=== PATIENT | male | born 1960 | race Caucasian/White ===

== ENCOUNTER 2018-12-14 06:07 | Inpatient (IN) ==
--- NOTE | 2018-12-07 10:01 | EKG Report ---
Test Performed on : 12/07/2018 09:53:17 AM Test Reason : PAT Blood Pressure : / mmHG Vent. Rate : 062 BPM Atrial Rate : 062 BPM P-R Int : 124 ms QRS Dur : 092 ms QT Int : 374 ms P-R-T Axes : 035 032 052 degrees QTc Int : 379 ms Normal sinus rhythm. Normal ECG When compared with ECG of 28-JUL-2017 09:14, No significant change was found Confirmed by Jaun CALLOWAY, Price Heath ([id number]) on 12/08/2018 8:23:42 PM
[2018-12-07 10:08] LABS: URINE SOURCE CLEAN CATCH
[2018-12-07 10:35] LABS: BILIRUBIN URINE NEGATIVE (NEGATIVE); BLOOD URINE NEGATIVE (NEGATIVE); COLOR YELLOW; GLUCOSE URINE NEGATIVE (NEGATIVE); KETONE URINE NEGATIVE (NEGATIVE); LEUKOCYTES URINE NEGATIVE (NEGATIVE); NITRITE URINE NEGATIVE (NEGATIVE); PH URINE 7.5; PROTEIN URINE NEGATIVE (NEGATIVE); SP GRAVITY URINE 1.015; TURBIDITY URINE CLEAR (CLEAR); UROBILINOGEN URINE NORMAL (NORMAL)
[2018-12-07 10:38] LABS: BASO# 0.05 X1000 (0.0-0.2); BASO% 0.8 % (0.0-0.8); EOS# 0.25 X1000 (0.0-0.7); HEMATOCRIT 41.9 % (42.0-52.0); HEMOGLOBIN 13.6 g/dL (14.0-18.0); LYMPH% 31.9 % (20.5-51.1); MCH 32.5 PG (27-31); MCHC 32.5 g/dL (33-37); MONO% 9.6 % (1.7-9.3); MPV 9.9 FL (7.4-10.4); NEUT# 3.36 X1000 (1.4-6.5); NEUT% 53.7 % (42.2-75.2); PLT 305 X1000 (130-400); RBC 4.19 XMIL (4.7-6.1); RDW 12.7 % (11.5-14.5); WBC 6.26 X1000 (4.8-10.8)
[2018-12-07 10:39] LABS: UR EPITHELIAL CELLS <10 /HPF (<10); URINE BACTERIA NEGATIVE /HPF; URINE RBC <10 /HPF (<10); URINE WBC <10 /HPF (<10)
[2018-12-07 10:43] LABS: INR 1.02; PROTIME 13.5 Seconds (11.0-16.0)
[2018-12-07 10:44] LABS: PTT 25.3 Seconds (22.3-41.8)
[2018-12-07 10:45] LABS: HEMOGLOBIN A1C 5.4 % (4.8-6.0)
[2018-12-07 11:12] LABS: CALCIUM 11.3 mg/dL (8.8-10.2); CREATININE 1.3 mg/dL (0.7-1.2); POTASSIUM 4.8 mmol/L (3.5-5.1)
[2018-12-14] MEDS ORDERED: SENSORCAINE 0.25%/EPI 1:200,000 ONE (07:17)
[2018-12-14] MEDS ORDERED: TORADOL ONE (07:17)
[2018-12-14] MEDS ORDERED: DURAMORPH ONE (07:17)
[2018-12-14] MEDS ORDERED: CYKLOKAPRON 1,000 MG/NS 1,000 MG/100 ML IVPB ONE (07:17)
[2018-12-14] MEDS ORDERED: VANCOMYCIN ONE (07:17)
[2018-12-14] MEDS ORDERED: SODIUM CHLORIDE 0.9% ONE (07:18)
[2018-12-14] MEDS ORDERED: EXPAREL 1.3% ONE (07:18)
[2018-12-14] MEDS ORDERED: REGLAN ONE (07:22)
[2018-12-14] MEDS ORDERED: PEPCID ONE (07:22)
[2018-12-14] MEDS ORDERED: COLACE ONE (07:22)
[2018-12-14] MEDS ORDERED: LR 1,000 ML ONE (07:23)
[2018-12-14] MEDS ORDERED: CELEBREX ONE (07:23)
[2018-12-14] MEDS ORDERED: KEFZOL 1 GM/D5W 2 GM/100 ML IVPB ONE (07:23)
[2018-12-14] MEDS ORDERED: LYRICA ONE (07:23)
[2018-12-14] MEDS ORDERED: DIPRIVAN 1% ONE (07:39)
[2018-12-14] MEDS ORDERED: NORCURON ONE (07:42)
[2018-12-14] MEDS ORDERED: SODIUM CHLORIDE 0.9% 10 ML ONE (07:42)
[2018-12-14] MEDS ORDERED: FENTANYL ONE ×2 (07:49→09:03)
[2018-12-14] MEDS ORDERED: QUELICIN (DOSE) ONE (08:33)
[2018-12-14] MEDS ORDERED: ROBINUL ONE ×2 (08:47→10:11)
[2018-12-14] MEDS ORDERED: DECADRON ONE (08:56)
[2018-12-14] MEDS ORDERED: ZOFRAN ONE (08:56)
[2018-12-14] MEDS ORDERED: OFIRMEV 1000 MG/ISOTONIC SOLN 1,000 MG/100 ML BOTTLE ONE (08:56)
[2018-12-14] MEDS ORDERED: AZOR PO SCH (09:00)
[2018-12-14] MEDS ORDERED: LOPRESSOR ONE (09:20)
[2018-12-14 09:21] LABS: URINE SOURCE CATH
[2018-12-14 09:29] LABS: BILIRUBIN URINE NEGATIVE (NEGATIVE); BLOOD URINE NEGATIVE (NEGATIVE); COLOR YELLOW; GLUCOSE URINE NEGATIVE (NEGATIVE); KETONE URINE NEGATIVE (NEGATIVE); LEUKOCYTES URINE NEGATIVE (NEGATIVE); NITRITE URINE NEGATIVE (NEGATIVE); PROTEIN URINE NEGATIVE (NEGATIVE); SP GRAVITY URINE 1.021; TURBIDITY URINE CLEAR (CLEAR); UR EPITHELIAL CELLS <10 /HPF (<10); URINE BACTERIA NEGATIVE /HPF; URINE RBC <10 /HPF (<10); URINE WBC <10 /HPF (<10); UROBILINOGEN URINE NORMAL (NORMAL)
[2018-12-14] MEDS ORDERED: NS 1,000 ML ONE (10:51)
[2018-12-14] MEDS: DILAUDID ONE ×8 (10:51→23:39)
[2018-12-14] MEDS: PHENERGAN ONE ×2 (10:56→23:39)
--- NOTE | 2018-12-14 11:20 | Diag Imaging Result Doc PS360 ---
SHOULDER 1 VIEW LEFT - 12/14/2018 INDICATION: Lt TSA TECHNIQUE: COMPARISON: None FINDINGS: There has been left total shoulder arthroplasty. Alignment is anatomic. No hardware fracture or loosening. IMPRESSION: No complication. Electronically signed by Nain Mccarty 12/14/2018 11:17 AM
[2018-12-14] MEDS ORDERED: ZOFRAN PO PRN (11:45)
[2018-12-14] MEDS ORDERED: OXY IR PO PRN ×2 (11:45)
[2018-12-14] MEDS ORDERED: MORPHINE IV PRN ×3 (11:45)
[2018-12-14] MEDS ORDERED: CYKLOKAPRON 1,000 MG in NS 100 ML IV ONE (15:00)
[2018-12-14] MEDS ORDERED: SALINE LOCK IV FLUID XX ONE (15:19)
[2018-12-14] MEDS: ASPIRIN PO SCH (16:26)
[2018-12-14] MEDS: TRICOR PO SCH (16:27)
[2018-12-14] MEDS: NS 1,000 ML IV SCH (16:27)
[2018-12-14] MEDS: NORVASC PO SCH (16:28)
[2018-12-14] MEDS: TOPROL XL PO SCH (16:28)
[2018-12-14] MEDS: KEFZOL 2 GM/D5W 2 GM/50 ML IVPB IV SCH (17:05)
[2018-12-14] MEDS ORDERED: LIPITOR PO SCH (21:00)
--- NOTE | 2018-12-14 22:47 | OPERATIVE NOTE ---
PROCEDURE DATE: 12/14/2018 PREOPERATIVE DIAGNOSIS: Left glenohumeral arthritis. POSTOPERATIVE DIAGNOSES: 1. Left glenohumeral arthritis. 2. Chronic rotator cuff tear. PROCEDURE: Left reverse total shoulder arthroplasty with DePuy Delta Xtend, size 12 press-fit stem, a 42 + 9 humeral cup, a +2 mm lateralize Eccentric Glenosphere and a standard metaglene. SURGEON: Lucho Perdomo MD MINERAL SURVEYING TECHNICIAN: Olivia Mancia, who was necessary for proper retraction and manipulation of the extremity during the case and improved efficiency. SECOND FILM EDITOR: AURORA Wright and Prasanna Hood RN. ANESTHESIA: General. IV FLUIDS: 2000 mL lactated Ringer's. ESTIMATED BLOOD LOSS: 200 mL. COMPLICATIONS: None. INDICATION: The patient is a pleasant, 58-year-old male with a longstanding history of worsening pain and discomfort in his left shoulder. This pain continued despite appropriate nonoperative treatment. X-rays revealed significant degenerative glenohumeral arthritis. The risks and benefits of surgery were explained, including the risks of anesthesia, , bleeding, infection, failure to relieve pain, postop stiffness, nerve injury, blood clots, and other imponderables. All questions were answered. The patient wished to proceed with surgery. DETAILS OF OPERATION: Patient was taken to the operating room and placed supine on the operating table. Once adequate anesthesia was obtained, the patient was placed semi-Garcia beach-chair position. The left shoulder was subsequently prepped and draped in usual sterile fashion. A standard deltopectoral incision was made with a skin knife. Hemostasis was obtained using electrocautery. The deltopectoral interval was then developed. Retractors were then placed. The subscapularis tendon was then released approximately 1 cm anterior and medial to the insertion. The patient did have evidence of a chronic rotator cuff tear. Further release of the posterior superior aspect of the rotator cuff was then performed. A starting reamer was then passed in the intramedullary canal. This was follow up to a size 12. Intramedullary guide with the proximal humeral cutting block was pinned in position. The humeral head was then resected. Inferior osteophyte was removed with a small osteotome. A protective disk was then placed. Attention then turned to the glenoid. Circumferential dissection was then performed with a deep knife. A guide was then placed in position. Guide pin was placed. Reaming was then conducted. The central hole was then dilated. The wound was copiously irrigated with pulsatile lavage. A standard metaglene was then impacted into position. The 2 locking screws and 2 nonlocking screws were placed. It had good fixation. The wound was copiously irrigated once again. A 42, +2 mm lateralize Eccentric Glenosphere was then placed with the eccentricity placed inferiorly. Attention then turned to the proximal humerus. The intramedullary guide was placed in position the proximal humerus was reamed. Copious irrigation was then performed with pulsatile lavage. A size 12 Delta Xtend press-fit humeral stem was then impacted in approximately 15 degrees of retroversion and had good fit. Trial cups were determined and a 42+ 9 appeared be correct size. The trial cup was removed. The wound was copiously irrigated once again. A 42+ 9 humeral cup was then impacted on the stem. The shoulder was reduced, carried through range of motion. It had excellent stability and range of motion. The wound was copiously irrigated with pulsatile lavage. Exparel was placed in the deep soft tissue, as well as subcutaneous tissue. A #2 FiberWire was used to repair the subscapularis tendon. Copious irrigation was then performed once again with pulsatile lavage. A 2-0 Vicryl was then used to repair the subcutaneous tissue, followed by running 2-0 Prolene. Benzoin and Steri-Strips applied. Adaptic, sterile 4 x 4, ABD pad, and tape was applied the left shoulder. Patient tolerated well with no complications. Transferred to the recovery room in stable condition. cc: Lucho Perdomo MD
[2018-12-15] MEDS: KEFZOL 2 GM/D5W 2 GM/50 ML IVPB IV SCH (01:17)
[2018-12-15] MEDS: NS 1,000 ML IV SCH (01:22)
[2018-12-15] MEDS ORDERED: DEMEROL PO PRN (06:00)
[2018-12-15 07:17] LABS: HEMATOCRIT 33.3 % (42.0-52.0); HEMOGLOBIN 10.5 g/dL (14.0-18.0)
[2018-12-15 07:28] VITALS: BP 124/78
[2018-12-15 07:36] LABS: AGAP 13; BUN 20 mg/dL (8-22); CALCIUM 9.6 mg/dL (8.8-10.2); CHLORIDE 103 mmol/L (98-107); COSMO 282; CREATININE 1.1 mg/dL (0.7-1.2); ESTIMATED GFR > 60; GLUCOSE 138 mg/dL (70-104); POTASSIUM 4.4 mmol/L (3.5-5.1); SODIUM 139 mmol/L (136-145); TCO2 23 mmol/L (25-35)
[2018-12-15] MEDS: NORVASC PO SCH ×2 (08:30→08:41)
[2018-12-15] MEDS: TOPROL XL PO SCH ×2 (08:31→08:41)
[2018-12-15] MEDS: BENICAR PO SCH ×3 (08:31→08:41)
[2018-12-15] MEDS: ASPIRIN PO SCH (08:31)
[2018-12-15] MEDS: TRICOR PO SCH (08:40)
[2018-12-15] MEDS ORDERED: PERIDEX MT SCH (09:00)
--- NOTE | 2018-12-15 13:06 | DISCHARGE SUMMARY ---
ADMISSION DATE: 12/14/2018 DISCHARGE DATE: 12/15/2018 SUBJECTIVE: The patient is a pleasant 58-year-old male who is 1 day status post left reverse shoulder arthroplasty. He is currently resting comfortably. He is complaining of itching from the oxycodone. PHYSICAL EXAMINATION: His left upper extremity dressing is intact. His is neurovascularly intact distally with good principal biostatistician strength. LABORATORY DATA: His labs are pending. IMPRESSION: Postoperative day #1 status post left reverse shoulder arthroplasty. PLAN: At this point, we will plan on changing his dressing and discharging home later this morning. We will switch him to Demerol and see if he will tolerate this medication better. We will arrange for outpatient physical therapy. cc: Lucho Perdomo MD
== END 2018-12-15 10:50 | disposition home or self-care (01) | DRG 483 ==
LOC: SURHOLD 06:07 → 4N 09:00
PROVIDERS: ADMIT Orthopaedic Surgery Adult Reconstructive Orthopaedic Surgery; ATTEND Orthopaedic Surgery Adult Reconstructive Orthopaedic Surgery